=== PATIENT | female | born 1995 | race Caucasian/White ===

== ENCOUNTER 2017-03-04 21:46 | Emergency (ER) | payer SELFPAY ==
[~2017-03-04] VITALS: Ht 167.6 cm; Wt 56.0 kg
[2017-03-05] MEDS ORDERED: LIDOCAINE HCL 1% 20ML VIAL (Pyxis) INJ MC ONE (00:15)
[2017-03-05] MEDS ORDERED: BACITRACIN ZINC OINT UDPKT TOP ONE (00:15)
[2017-03-05] MEDS ORDERED: IBUPROFEN 600MG TABLET PO ONE (01:00)
[2017-03-05 01:05] VITALS: BP 105/62
== END 2017-03-05 01:00 | disposition home or self-care (01) ==
LOC: ER 21:46
DX: L02.415 Cutaneous abscess of right lower limb (principal); J45.909 Unspecified asthma, uncomplicated; F17.200 Nicotine dependence, unspecified, uncomplicated
CPT/HCPCS: 10060; 99283; J3490; Z7610